=== PATIENT | female | born 1990 | race Caucasian/White ===

== ENCOUNTER 2016-06-17 19:00 | Inpatient (IN) | payer OTHER ==
[2016-06-17] MEDS ORDERED: DEXTROSE 5%-LACTATED RINGERS 1,000 ML IV SCH (19:30)
[2016-06-17] MEDS ORDERED: oxyCODONE HCL 5 MG TABLET PO PRN (20:21)
[2016-06-17] MEDS ORDERED: ACETAMINOPHEN 325 MG TABLET (FP) PO PRN (20:21)
[2016-06-17] MEDS ORDERED: WITCH HAZEL 50% (TUCKS) 40 PAD/JAR PAD TP PRN (20:21)
[2016-06-17] MEDS ORDERED: BENZOCAINE 28 GM HEMORRHOIDAL OINTMENT TP PRN (20:21)
[2016-06-17] MEDS ORDERED: IBUPROFEN 600 MG TABLET (FP) PO PRN (20:21)
[2016-06-17] MEDS ORDERED: BENZOCAINE 20% 57 GM BOTTLE TP PRN (20:21)
[2016-06-17] MEDS ORDERED: METHYLERGONOVINE MALEATE 0.2 MG/1 ML AMP IM PRN (20:21)
[2016-06-17] MEDS ORDERED: BISACODYL 10 MG SUPP.RECT RC PRN (20:21)
--- NOTE | 2016-06-17 20:29 | HP ---
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 Weeks Gestation by Dates: 39.4 ...EDC by Dates: 06/20/16 ...EDC by Sono: 06/24/16 (39 weeks ) Heme/Onc: Yes: Anemia (rx po iron & pnv h/o blood transfusions in 2013 h/o VIT D deff) Infectious Disease: No: HIV, STD's Rheumatology: Yes: Lupus (hy/o pos DANGELO, f/u with Stick Inserter) Endocrine: No: Diabetes Mellitus, Hyperthyroidism, Hypothyroidism - Past Surgical History Past Surgical History: Yes: None Hx Myomectomy: No Hx Transabdominal Cerclage: No - Smoking History Smoking history: Never smoked Have you smoked in the past 12 months: No - Alcohol/Substance Use Hx Alcohol Use: No History of Substance Use: reports: None - Social History History of Recent Travel: No Home Medications - Allergies Allergies/Adverse Reactions: Allergies Allergy/AdvReac Type Severity Reaction Status Date / Time No Known Allergies Allergy Verified 06/17/16 15:01 - Home Medications Home Medications: Ambulatory Orders Pnv95/Ferrous Fumarate/FA [ Vitamin Tablet] 1 each PO DAILY 04/07/16 Ferrous Gluconate [Iron] 1 tab PO DAILY 06/17/16 Family Disease History - Family Disease History Family Disease History: Other: Grandparent (brain tummor and seizures) Physical Exam - Maternity Vital Signs: Selected Entries 06/17/16 19:20 Temperature 98.1 F Pulse Rate 103 H Respiratory 20 Rate Blood Pressure 130/76 Weight 178 lb Constitutional: Yes: Well Nourished, Severe Distress Eyes: Yes: WNL HENT: Yes: WNL Neck: Yes: WNL Cardiovascular: Yes: WNL Lungs: Clear to auscultation Breast(s): Yes: Other (not examined) - Abdominal Exam/OB Fundal Height: 40 Number of Fetuses: Single Presentation: Vertex Regularity: Regular (q2 min) Intensity: Strong Monitor Mode: External Heart Rate (range): 140 Heart Rate Location: Midline Category: I Accelerations: Uniform - Vaginal Exam/OB Vaginal Bleediing: No Speculum Exam: No Dilatation (cm): 10 cm Effacement (%): 100 Amniotic Membrane Status: Ruptured (srom at 19.25 hr) Amniotic Fluid: Yes: Clear Presentation: Vertex/Position (. exam at 19.25 fully dilated at 19.20 hr) Station: +2 - Physical Exam Musculoskeletal: Yes: WNL Extremities: Yes: WNL. No: Calf Tenderness Edema: Yes Edema: LLE: 1+, RLE: 1+ Integumentary: Yes: WNL Deep Tendon Reflex Grade: Normal +2 ...Motor Strength: WNL Psychiatric: Yes: WNL, Alert, Oriented - Labs Lab Results: Laboratory Tests 06/17/16 06/17/16 06/17/16 21:00 21:00 21:00 WBC 14.7 H D Hgb 12.5 Hct 37.9 Plt Count 221 D Neutrophils % 92.6 H Lymphocytes % 3.7 L D INR 0.94 PTT (Actin FS) 26.3 L Sodium 137 Potassium 3.5 Carbon Dioxide 20 L D BUN 7 D Creatinine 0.6 Random Glucose 105 D Blood Type 06/17/16 21:00 WBC Hgb Hct Plt Count Neutrophils % Lymphocytes % INR PTT (Actin FS) Sodium Potassium Carbon Dioxide BUN Creatinine Random Glucose Blood Type A POSITIVE Problem List - Problems (1) 39 weeks gestation of Code(s): Z3A.39 - 39 WEEKS GESTATION OF (2) Labor established Code(s): IPY7675 - Assessment/Plan 25 yrs Gbs neg, admitted in active labor,2nd stage . Pt had at 19.37 hr , babay Girl, apgar9/9, Doreen Placenta delivery at 19.45 hr
[2016-06-17] MEDS ORDERED: D5W-LR W/ 20 UNITS OXYTOCIN 1,000 ML IV SCH (20:30)
[2016-06-17 21:40] VITALS: BMI 27.8
[2016-06-17 22:11] LABS: BASOPHIL 0.2 % (0-2.0); MCH 27.9 pg (25.7-33.7); MEAN CELL VOLUME 84.5 fl (80-96); MEAN PLT VOLUME 8.7 fl (7.5-11.1); NEUTROPHILS 92.6 % (42.8-82.8); PLATELET COUNT 221 K/MM3 (134-434); RDW 14.7 % (11.6-15.6); WHITE BLOOD COUNT 14.7 K/mm3 (4.0-10.0)
[2016-06-17 22:13] LABS: CALCIUM 8.3 mg/dL (8.5-10.1); CREATININE 0.6 mg/dL (0.55-1.02)
[2016-06-17 22:38] LABS: INR 0.94 (0.82-1.09); PROTHROMBIN TIME (PATIENT) 10.3 SEC (9.98-11.88)
[2016-06-17 22:41] LABS: ACTIVATED PTT 26.3 SECONDS (26.9-34.4)
--- NOTE | 2016-06-17 23:14 | PN ---
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
[2016-06-18] MEDS: FERROUS SO4 325 MG TABLET (FP) PO SCH ×2 (08:00→16:43)
--- NOTE | 2016-06-18 08:24 | PN ---
Post Progress Note - Subjective Subjective: doing well and has no complaint Post Day: 1 Type of Delivery: Vital Signs: Vital Signs Temperature 98.1 F 06/18/16 06:00 Pulse Rate 72 06/18/16 06:00 Respiratory Rate 18 06/18/16 06:00 Blood Pressure 113/64 06/18/16 06:00 O2 Sat by Pulse Oximetry (%) Breast Exam: Yes: Soft Uterus: Yes: Fundus Firm Abdomen/GI: Yes: Abdomen soft Lochia: Yes: Rubra Lochia, amount: Small Extremities: Yes: Calves non-tender Perineum: Yes: Intact Activity: Ambulating - Labs Labs: CBC WBC 14.7 K/mm3 (4.0-10.0) H D 06/17/16 21:00 RBC 4.48 M/mm3 (3.60-5.2) 06/17/16 21:00 Hgb 12.5 GM/dL (10.7-15.3) 06/17/16 21:00 Hct 37.9 % (32.4-45.2) 06/17/16 21:00 MCV 84.5 fl (80-96) 06/17/16 21:00 MCHC 33.0 g/dl (32.0-36.0) 06/17/16 21:00 RDW 14.7 % (11.6-15.6) D 06/17/16 21:00 Plt Count 221 K/MM3 (134-434) D 06/17/16 21:00 MPV 8.7 fl (7.5-11.1) D 06/17/16 21:00 Neutrophils % 92.6 % (42.8-82.8) H 06/17/16 21:00 Lymphocytes % 3.7 % (8-40) L D 06/17/16 21:00 Monocytes % 3.5 % (3.8-10.2) L 06/17/16 21:00 Eosinophils % 0.0 % (0-4.5) D 06/17/16 21:00 Basophils % 0.2 % (0-2.0) 06/17/16 21:00 Assessment/Plan as asbove oob reg diet check labs
[2016-06-18 08:45] LABS: BASOPHIL 0.2 % (0-2.0); MCH 27.6 pg (25.7-33.7); MCHC 33.1 g/dl (32.0-36.0); MEAN CELL VOLUME 83.6 fl (80-96); MEAN PLT VOLUME 8.2 fl (7.5-11.1); NEUTROPHILS 85.3 % (42.8-82.8); PLATELET COUNT 185 K/MM3 (134-434); RDW 14.7 % (11.6-15.6); WHITE BLOOD COUNT 13.3 K/mm3 (4.0-10.0)
[2016-06-18] MEDS: PRENATAL VITAMINS W/ FOLIC ACID TABLET (FP) PO SCH (09:38)
[2016-06-18] MEDS ORDERED: PNEUMOC 13-VAL CONJ-DIP CRM/PF 0.5 ML DISP.SYRIN IM ONE (10:00)
[2016-06-18 21:53] VITALS: TEMP 97.7
[2016-06-18] MEDS ORDERED: SENNOSIDES/DOCUSATE COMBO (SENNA PLUS) TABLET (UD) PO PRN (22:00)
--- NOTE | 2016-06-19 07:53 | PN ---
Progress Note (short form) - Note Progress Note: ppd 2 no c/o voids ok CBC, BMP 06/18/16 07:45 06/17/16 21:00 Last Vital Signs Temp Pulse Resp BP Pulse Ox 97.7 F 75 18 107/62 06/18/16 21:53 06/18/16 21:53 06/18/16 21:53 06/18/16 21:53 abdomen soft, uterus firm lochia mild no calf tenderness plan d/c home ,rtc 4 weeks
[2016-06-19] MEDS: FERROUS SO4 325 MG TABLET (FP) PO SCH (08:08)
[2016-06-19] MEDS: PRENATAL VITAMINS W/ FOLIC ACID TABLET (FP) PO SCH (10:14)
[2016-06-19 10:28] VITALS: BP 100/44; PULSE 60
--- NOTE | 2016-06-19 13:31 | DS ---
Physical Exam-VOCATIONAL CASE MANAGER Vital Signs: Vital Signs Temperature 97.7 F 06/19/16 10:23 Pulse Rate 60 06/19/16 10:23 Respiratory Rate 18 06/19/16 10:23 Blood Pressure 100/44 06/19/16 10:23 O2 Sat by Pulse Oximetry (%) Constitutional: Yes: Well Nourished Eyes: Yes: WNL HENT: Yes: WNL Neck: Yes: WNL Cardiovascular: Yes: WNL Respiratory: Yes: WNL Gastrointestinal: Yes: WNL ...Rectal Exam: Yes: WNL ....Post : Yes: Uterus firm, Uterus non-tender, Moderate lochia rubra ( perineum 2nd degree laceration healing) Breast(s): Yes: WNL (BF) Musculoskeletal: Yes: WNL Extremities: Yes: WNL. No: Calf Tenderness Edema: LLE: Trace, RLE: Trace Neurological: Yes: WNL, Unresponsive Psychiatric: Yes: WNL, Alert, Oriented Labs: CBC, BMP 06/18/16 07:45 06/17/16 21:00 Delivery - Delivery Vaginal Delivery: No Problems, Spontaneous Type of Anesthesia: Local Episiotomy/Laceration: 2nd degree (laceration was suture in layers with Chr catgut #2/o under L/a) EBL (cc): 300 Delivery, Single - Stages of Labor Date 1st Stage Initiatied: 06/17/16 Time 1st Stage Initiated: 17:30 Date 2nd Stage Initiated: 06/17/16 Time 2nd Stage Initiated: 19:20 Date of Delivery: 06/17/16 Time of Delivery: 19:37 Time Placenta Delivered: 19:45 Placenta: Yes: Spontaneous, Uterine Exploration - Condition of Infant Rat Trapper/Sanitation Truck Driver Present: No Infant Gender: Female Weight: 7 lb 6 oz Position: Left, OA Total Hours ROM (Hrs/Mins): 20 min - 1 Minute Total Score: 9 5 Minutes Total Score: 9 - [place] Feeding Plan Initial Plan: Elected not to breastfeed exclusively throughout hospitalization Remarks - Remarks Remarks: 25 yrs 39 weeks admitted in active 2nd stage of labor PNC at , [facility] GBS neg Intrapartum course uneventful. pp course uneventful. discharge today. Discharge Summary Reason For Visit: LABOR Current Active Problems 39 weeks gestation of (Acute) Labor established (Acute) Normal spontaneous vaginal delivery (Acute) Condition: Stable - Instructions Diet, Activity, Other Instructions: Post Instructions DIET: Continue good diet high in protein, calcium, and iron rich foods. Drink at least eight (8) glasses of water daily in addition to other fluids. CT Regular diet MEDICATIONS: Continue vitamins and iron as previously directed. Motrin and Tylenol may be taken for minor discomfort. ACTIVITY: Mild to moderate exercise may be started in two (2) weeks. Take frequent rest periods. Resume normal activity after six (6) week check up. WOUND CARE OF OPERATIVE SITE: Continue use of perineal bottle until vaginal discharge stops. Keep area clean. Shower daily. Keep abdominal wound dry. Report any drainage or redness to physician. Tub baths, tampons and douches are not permitted for [address] Breast feeding & or Bottle feeding BREAST CARE: (For those that are not breast feeding): If engorgement occurs: Wear tight fitting bra. Take Tylenol or Motrin for pain. Apply cold packs (ice in bags to each breast ) FAMILY PLANNING: There are many control alternatives to pursue and they should be discussed at your first office visit. You may resume sexual activity after your six (6) week check up. (Remember, breast feeding is not a contraceptive) NEXT PHYSICIAN APPOINTMENT: Be certain to call for a six (6) week appointment, unless otherwise directed. Call Clinic or got to Emergency Dept if you have any of the following: Heavy vaginal bleeding Painful urination Leg pain Unusual odor noted to vaginal bleeding High fever Red streaking noted on breast Referrals: Leti Romero MD [Staff Physician] - Disposition: HOME - Home Medications Comprehensive Discharge Medication List: Ambulatory Orders Pnv95/Ferrous Fumarate/FA [ Vitamin Tablet] 1 each PO DAILY 04/07/16 Ferrous Gluconate [Iron] 1 tab PO DAILY 06/17/16 Acetaminophen [Tylenol .Regular Strength -] 650 mg PO Q3H PRN #0 tablet Benzocaine [Americaine 20% [place] -] 1 spray TP PRN PRN #0 bottle 06/18/16 Ferrous Sulfate [Feosol] 325 mg PO BIDWM 06/18/16 Ibuprofen [Motrin -] 200 mg PO Q4H PRN #0 tablet 06/18/16 Vitamins (Sjr) - 1 tab PO DAILY tablet 06/18/16 Ibuprofen [Motrin -] 600 mg PO QID #28 tablet 06/19/16
== END 2016-06-19 13:40 | disposition home or self-care (01) | DRG 560 ==
LOC: JLDR 19:00 → J3W 22:25
PROVIDERS: ADMIT Obstetrics & Gynecology; ATTEND Obstetrics & Gynecology
PROC: 0KQM0ZZ Repair Perineum Muscle, Open Approach (ICD-10-PCS; principal; 2016-06-17)
PROC: 10E0XZZ Delivery of Products of Conception, External Approach (ICD-10-PCS; 2016-06-17)
DX: O70.1 Second degree perineal laceration during delivery (principal); Z3A.39 39 weeks gestation of pregnancy; Z37.0 Single live birth
CPT/HCPCS: 36415; 59409; 80048; 85025; 85610; 85730; 86593; 86850; 86900; 86901

== ENCOUNTER 2018-08-08 12:23 | Emergency (ER) | payer OTHER ==
[2018-08-08 12:33] VITALS: BP 135/82; PULSE 76; TEMP 98.1; BMI 27.1
--- NOTE | 2018-08-08 13:30 | PDOC ---
History of Present Illness - General Chief Complaint: Chest Pain Stated Complaint: CHEST PAIN Time Seen by Provider: 08/08/18 13:15 - History of Present Illness Initial Comments: 08/08/18 13:25 27-year-old female with past medical history significant for hypothyroidism presents for evaluation of upper back pain 6 days. Past History - Past Medical History Allergies/Adverse Reactions: Allergies Allergy/AdvReac Type Severity Reaction Status Date / Time No Known Allergies Allergy Verified 08/08/18 12:30 Home Medications: Ambulatory Orders Cyclobenzaprine HCl [Flexeril 10 mg] 10 mg PO HS PRN #10 tablet 08/08/18 Ibuprofen [Motrin -] 600 mg PO TID #30 tablet 08/08/18 Levothyroxine [Synthroid -] 100 mcg PO DAILY 08/08/18 Asthma: Yes (no meds) Cancer: No Cardiac Disorders: No COPD: No Diabetes: No HTN: No Seizures: Yes (no meds) Thyroid Disease: No - Immunization History Immunization Up to Date: No - Suicide/Smoking/Psychosocial Hx Smoking History: Never smoked Have you smoked in the past 12 months: No Hx Alcohol Use: No Drug/Substance Use Hx: No Hx Substance Use Treatment: No Review of Systems - Review of Systems Constitutional: No: Fever Cardiac (ROS): Yes: Chest Pain. No: Lightheadedness, Palpitations, Syncope, Chest Tightness Musculoskeletal: Yes: Back Pain *Physical Exam - Vital Signs Last Vital Signs Temp Pulse Resp BP Pulse Ox 98.1 F 76 17 135/82 100 08/08/18 12:30 08/08/18 12:30 08/08/18 12:30 08/08/18 12:30 08/08/18 12:30 - Physical Exam Comments: 08/08/18 13:26 HEAD: NC/AT EYES: Conjuntiva clear Ears: Canals and TM's normal NOSE: No d/c THROAT: Moist mucous membrances, oral pharanx clear, uvula midline NECK: Supple without adenopathy CARDIAC: S1 S2 LUNGS: CTA Full and Equal breath sounds ABDOMEN: Soft NT ND MS: Full ROM in all joints without edema NEUROLOGIC: No gross sensory or motor deficits, NVID SKIN: Normal color and temperature no lesions or rashes Cervical thoracic and lumbar spine skin color and temperature are normal. There is no midline tenderness. Range of motion is full in all areas. There is tenderness about the left para thoracic musculature into the latissimus wrapping around to the front. Mild left-sided costochondral tenderness. No gross sensorimotor deficits in bilateral upper or lower extremities 5 out of 5 strength in both bilateral upper and lower extremities. No gross sensorimotor deficits. Medical Decision Making - Medical Decision Making 08/08/18 13:28 Upper back strain and costochondritis Motrin and Flexeril follow-up with orthospine *DC/Admit/Observation/Transfer Diagnosis at time of Disposition: Costochondral pain, Strain of thoracic spine - Discharge Dispostion Disposition: HOME Condition at time of disposition: Stable Decision to Admit order: No - Prescriptions Prescriptions: Cyclobenzaprine HCl [Flexeril 10 mg] 10 mg PO HS PRN #10 tablet PRN Reason: Muscle Spasms Ibuprofen [Motrin -] 600 mg PO TID #30 tablet - Referrals Referrals: Be Mendieta MD [Staff Physician] - - Patient Instructions Printed Discharge Instructions: Costochondritis, DI for Costochondritis, Muscle Strain Additional Instructions: Please take the Flexeril and Motrin as directed. He may also add Tylenol as directed for additional pain medicine. Continue your regular medication as directed. Follow-up with orthopedic spine surgery in 1-2 days for further evaluation and treatment options and return to the emergency room should symptoms worsen. - Post Discharge Activity
--- NOTE | 2018-08-09 14:59 | EKG ---
Test Reason : Blood Pressure : / mmHG Vent. Rate : 061 BPM Atrial Rate : 061 BPM P-R Int : 162 ms QRS Dur : 096 ms QT Int : 428 ms P-R-T Axes : 030 063 044 degrees QTc Int : 430 ms NORMAL SINUS RHYTHM NORMAL ECG Confirmed by MD NGOZI, ANA ([id number]) on 08/09/2018 2:58:50 PM Referred By: Confirmed By:ANA MELVIN MD
== END 2018-08-08 13:45 | disposition home or self-care (01) ==
LOC: JERFT 12:23
DX: M94.0 Chondrocostal junction syndrome [Tietze] (principal); S29.012A Strain of muscle and tendon of back wall of thorax, initial encounter; X58.XXXA Exposure to other specified factors, initial encounter; Y93.89 Activity, other specified; Y92.89 Other specified places as the place of occurrence of the external cause; Y99.8 Other external cause status
CPT/HCPCS: 93005; 93010; 99281-25

== ENCOUNTER 2018-10-07 11:18 | Emergency (ER) | payer OTHER ==
[2018-10-07 11:33] VITALS: BP 109/59; PULSE 60; TEMP 98.2; BMI 29.2
[2018-10-07] MEDS ORDERED: CYCLOBENZAPRINE HCL 10 MG TABLET (FP) PO ONE (12:01)
[2018-10-07] MEDS ORDERED: LIDOCAINE 5% TOPICAL PATCH TP ONE (12:01)
[2018-10-07] MEDS ORDERED: IBUPROFEN 600 MG TABLET (FP) PO ONE ×2 (12:01→12:04)
[2018-10-07] MEDS ORDERED: CYCLOBENZAPRINE HCL 10 MG TABLET (FP) ONE (12:04)
[2018-10-07] MEDS ORDERED: LIDOCAINE 5% TOPICAL PATCH ONE (12:04)
--- NOTE | 2018-10-07 12:15 | PDOC ---
History of Present Illness - General Chief Complaint: Injury Stated Complaint: FALL/PAIN Time Seen by Provider: 10/07/18 11:39 History Source: Patient Exam Limitations: No Limitations Past History - Past Medical History Allergies/Adverse Reactions: Allergies Allergy/AdvReac Type Severity Reaction Status Date / Time No Known Allergies Allergy Verified 10/07/18 11:23 Home Medications: Ambulatory Orders Ibuprofen [Motrin -] 600 mg PO TID #30 tablet 08/08/18 Levothyroxine [Synthroid -] 100 mcg PO DAILY 08/08/18 Cyclobenzaprine HCl [Flexeril 10 mg] 10 mg PO TID PRN #21 tablet 10/07/18 Lidocaine 5% Patch [Lidoderm -] 1 patch TP DAILY #7 patch 10/07/18 Asthma: Yes (no meds) Cancer: No Cardiac Disorders: No COPD: No Diabetes: No HTN: No Seizures: Yes (no meds) Thyroid Disease: No - Immunization History Immunization Up to Date: No - Suicide/Smoking/Psychosocial Hx Smoking History: Never smoked Have you smoked in the past 12 months: No Information on smoking cessation initiated: No Hx Alcohol Use: No Drug/Substance Use Hx: No Hx Substance Use Treatment: No *Physical Exam - Vital Signs Last Vital Signs Temp Pulse Resp BP Pulse Ox 98.2 F 60 17 109/59 L 100 10/07/18 11:24 10/07/18 11:24 10/07/18 11:24 10/07/18 11:24 10/07/18 11:24 - Physical Exam General Appearance: No: Apparent Distress Respiratory/Chest: positive: Lungs Clear, Normal Breath Sounds. negative: Respiratory Distress Cardiovascular: positive: Regular Rhythm, Regular Rate, S1, S2. negative: Murmur Gastrointestinal/Abdominal: positive: Normal Bowel Sounds, Soft. negative: Tender, Distended, Guarding, Rebound Musculoskeletal: positive: Other (+R lumbosacral paraspinal TTP, no vertebral tenderness, negative SLR B/L). negative: Vertebral Tenderness Neurologic: positive: unit aide II-XII NML intact, Fully Oriented, Alert, Normal Mood/ Affect, Motor Strength 5/5 ED Treatment Course - Medications Given in the ED: ED Medications Discontinued Medications Generic Name Dose Route Start Last Admin Trade Name Freq PRN Reason Stop Dose Admin Cyclobenzaprine HCl 10 mg 10/07/18 12:01 10/07/18 12:06 Flexeril - PO 10/07/18 12:02 10 mg ONCE ONE Administration Ibuprofen 600 mg 10/07/18 12:01 10/07/18 12:06 Motrin - PO 10/07/18 12:02 600 mg ONCE ONE Administration Lidocaine 1 patch 10/07/18 12:01 10/07/18 12:06 Lidoderm Patch - TP 10/07/18 12:02 1 patch ONCE ONE Administration Medical Decision Making - Medical Decision Making 27 y/o F with hx of Nik's presents with lower back pain s/p slip and fall in bathtub 5 weeks ago. States she had put 1 leg out to grab towel and then slipped backward, hitting lower back. States has been taking Motrin, which helps temporarily with pain. States pain radiated down to R knee. Pain is worse with movement of spine. Denies numbness/tingling/weakness of extremities, saddle /groin paresthesia, bowel/bladder incontinence, abd pain, sob, cp, n/v, urinary complaints Not suspicious for spinal fracture/cauda equina/herniated disc based on exam; likely MSK pain Given Motrin, Flexeril, Lidocaine patch 10/07/18 12:10 *DC/Admit/Observation/Transfer Diagnosis at time of Disposition: Lower back pain Qualifiers: Chronicity: acute Back pain laterality: right Sciatica presence: without sciatica Qualified Code(s): M54.5 - Low back pain - Discharge Dispostion Disposition: HOME Condition at time of disposition: Stable Decision to Admit order: No - Prescriptions Prescriptions: Cyclobenzaprine HCl [Flexeril 10 mg] 10 mg PO TID PRN #21 tablet PRN Reason: Muscle Spasms Lidocaine 5% Patch [Lidoderm -] 1 patch TP DAILY #7 patch - Referrals Referrals: Bello Maya MD [Primary Care Provider] - - Patient Instructions Printed Discharge Instructions: DI for Low Back Pain Additional Instructions: Thank you for choosing [facility]. It was a pleasure taking care of you. You may take Motrin 600 mg every 6 hours by mouth as needed for mild to moderate pain. Take Motrin with food. Take Flexeril as needed for muscle spasms. This medication can also make you drowsy so please be cautious with driving or performing heavy physical work. Apply lidocaine patch for 12 hours and then keep off for 12 hours Apply warm compresses Follow-up with your doctor in 2 days Return to the Emergency Department if your symptoms worsen or persist, you have chest pain, severe abdominal pain, vomiting, weakness of extremities, unable to walk, unable to control bowel or bladder movements, numbness around groin or other concerning symptoms. - Post Discharge Activity
== END 2018-10-07 12:20 | disposition home or self-care (01) ==
LOC: JERFT 11:18
DX: M54.5 Low back pain (principal); W18.2XXA Fall in (into) shower or empty bathtub, initial encounter; Y93.E1 Activity, personal bathing and showering; Y92.031 Bathroom in apartment as the place of occurrence of the external cause; Y99.8 Other external cause status
CPT/HCPCS: 99281-25

== ENCOUNTER 2021-01-17 13:15 | Emergency (ER) | payer OTHER ==
[2021-01-17 13:21] VITALS: BP 100/66; PULSE 64; TEMP 98.6; BMI 29.9
[2021-01-17] MEDS ORDERED: KETOROLAC TROMETHAMINE 60 MG/2 ML VIAL IM ONE (13:37)
[2021-01-17] MEDS ORDERED: KETOROLAC TROMETHAMINE 60 MG/2 ML VIAL ONE (13:39)
== END 2021-01-17 15:47 | disposition home or self-care (01) ==
LOC: JER 13:15
PROC: 3E0233Z Introduction of Anti-inflammatory into Muscle, Percutaneous Approach (ICD-10-PCS; principal; 2021-01-17)
DX: S09.90XA Unspecified injury of head, initial encounter (principal); W20.8XXA Other cause of strike by thrown, projected or falling object, initial encounter; Y92.9 Unspecified place or not applicable
CPT/HCPCS: 70450-TC; 99285-25

== ENCOUNTER 2022-12-26 12:28 | Emergency (ER) | payer OTHER ==
[2022-12-26 12:52] VITALS: BP 104/62; PULSE 78; RESP 20; TEMP 98.2; BMI 32.5
[2022-12-26] MEDS ORDERED: SODIUM CHLORIDE 0.9% 500 ML INFUS.BAG IV ONE (13:38)
[2022-12-26 14:19] LABS: BASO % 0.4 % (0-2.0); EOS % 0.7 % (0-4.5); HEMATOCRIT 37.6 % (32.4-45.2); LYMPH % 8.9 % (8-40); MCH 31.8 pg (25.7-33.7); MCHC 34.6 g/dl (32.0-36.0); MEAN CELL VOLUME 91.8 fl (80-96); MEAN PLT VOLUME 7.8 fl (7.5-11.1); MONO % 5.1 % (3.8-10.2); NEUT % 84.9 % (42.8-82.8); PLATELET COUNT 289 10^3/uL (134-434); RDW 14.1 % (11.6-15.6); WHITE BLOOD COUNT 10.4 K/mm3 (4.0-10.0)
[2022-12-26 14:22] LABS: EPI CELLS >36 /uL (0-25.1); HYALINE CASTS 0 /uL (0-3.1); URINE APPEARANCE CLEAR; URINE BACTERIA 646 /uL (0-1359); URINE BILIRUBIN NEGATIVE (NEGATIVE); URINE COLOR YELLOW; URINE GLUCOSE (UA) NEGATIVE (NEGATIVE); URINE KETONE NEGATIVE (NEGATIVE); URINE LEUK ESTERASE 2+ (NEGATIVE); URINE NITRITE NEGATIVE (NEGATIVE); URINE PROTEIN NEGATIVE (NEGATIVE); URINE RBC 24 /uL (0-23.9); URINE UROBILINOGEN 0.2 mg/dL (0.2-1.0); URINE WBC 17 /uL (0-25.8)
[2022-12-26 14:36] LABS: POTASSIUM 4.3 mmol/L (3.5-5.1)
[2022-12-26 14:38] LABS: CALCIUM 8.7 mg/dL (8.5-10.1)
[2022-12-26 14:39] LABS: ALBUMIN 3.1 g/dl (3.4-5.0); BLOOD UREA NITROGEN 7.9 mg/dL (7-18)
[2022-12-26 14:42] LABS: CREATININE 0.6 mg/dL (0.55-1.3)
[2022-12-26 14:43] LABS: BILIRUBIN,TOTAL 0.3 mg/dL (0.2-1); TOT PROT 6.8 g/dl (6.4-8.2)
[2022-12-26] MEDS ORDERED: ACETAMINOPHEN 1000 MG/100 ML BAG IVPB ONE (15:28)
[2022-12-26] MEDS ORDERED: ACETAMINOPHEN INJECTION 100 ML IVPB ONE (15:50)
[2022-12-26] MEDS ORDERED: ACETAMINOPHEN 325 MG TABLET (FP) PO ONE (17:01)
[2022-12-26] MEDS ORDERED: CEPHALEXIN MONOHYDRATE 500 MG CAPSULE (UD) PO ONE (17:02)
[2022-12-26] MEDS ORDERED: CEPHALEXIN MONOHYDRATE 500 MG CAPSULE (UD) ONE (17:09)
[2022-12-26] MEDS ORDERED: ACETAMINOPHEN 325 MG TABLET (FP) ONE (17:09)
== END 2022-12-26 18:30 | disposition home or self-care (01) ==
LOC: JER 12:28
DX: O26.892 Other specified pregnancy related conditions, second trimester (principal); R10.9 Unspecified abdominal pain; O99.891 Other specified diseases and conditions complicating pregnancy; M54.50 Low back pain, unspecified; Z3A.19 19 weeks gestation of pregnancy
CPT/HCPCS: 36415; 76815-TC; 80053; 81003; 84702; 85025; 87086; 99284-25

== ENCOUNTER 2023-05-05 16:59 | Emergency (ER) | payer OTHER ==
[2023-05-05 17:21] VITALS: RESP 18; BMI 34.8
[2023-05-05 22:01] VITALS: BP 110/74; PULSE 107; TEMP 98.1
== END 2023-05-05 21:55 | disposition home or self-care (01) ==
LOC: JER 16:59
PROC: 0H97XZZ Drainage of Abdomen Skin, External Approach (ICD-10-PCS; principal; 2023-05-05)
DX: O99.713 Diseases of the skin and subcutaneous tissue complicating pregnancy, third trimester (principal); L02.214 Cutaneous abscess of groin; Z3A.39 39 weeks gestation of pregnancy
CPT/HCPCS: 87070; 87076; 87205; 99283-25

== ENCOUNTER 2023-05-15 15:30 | Inpatient (IN) | payer OTHER ==
[2023-05-15] MEDS: ELECTROLYTE-148 SOLN 1,000 ML IV SCH (15:50)
[2023-05-15 16:19] VITALS: BMI 34.8
[2023-05-15 16:30] LABS: BASO % 0.6 % (0-2.0); EOS % 0.3 % (0-4.5); LYMPH % 13.2 % (8-40); MCH 31.3 pg (25.7-33.7); MCHC 35.1 g/dl (32.0-36.0); MEAN CELL VOLUME 89.3 fl (80-96); MONO % 5.1 % (3.8-10.2); NEUT % 80.8 % (42.8-82.8); PLATELET COUNT 288 10^3/uL (134-434); RBC 4.15 M/mm3 (3.60-5.2); WHITE BLOOD COUNT 8.3 K/mm3 (4.0-10.0)
[2023-05-15 16:37] LABS: INR 0.95 (0.83-1.09)
[2023-05-15 16:40] LABS: ACTIVATED PTT 25.2 SECONDS (25.2-36.5)
[2023-05-15 16:52] LABS: POTASSIUM 3.9 mmol/L (3.5-5.1)
[2023-05-15 16:53] LABS: BLOOD UREA NITROGEN 10.2 mg/dL (7-18); CALCIUM 9.2 mg/dL (8.5-10.1)
[2023-05-15 16:57] LABS: CREATININE 0.6 mg/dL (0.55-1.3)
[2023-05-15] MEDS ORDERED: OXYTOCIN 20 UNITS in 0.9% NS 20 UNIT/1,000 ML INFUS.BAG IV ONE (20:17)
[2023-05-15] MEDS ORDERED: MISOPROSTOL 200 MCG TABLET ONE (20:31)
[2023-05-15] MEDS: OXYTOCIN 20 UNITS in 0.9% NS 20 UNIT/1,000 ML INFUS.BAG IV SCH (21:05)
[2023-05-15] MEDS ORDERED: BENZOCAINE 28 GM HEMORRHOIDAL OINTMENT TP PRN (21:19)
[2023-05-15] MEDS ORDERED: METHYLERGONOVINE MALEATE 0.2 MG/1 ML AMP IM PRN (21:19)
[2023-05-15] MEDS ORDERED: WITCH HAZEL 50% (TUCKS) 40 PAD/JAR PAD TP PRN (21:19)
[2023-05-15] MEDS ORDERED: BISACODYL 10 MG SUPP.RECT RC PRN (21:19)
[2023-05-15] MEDS ORDERED: BENZOCAINE 20% 57 GM BOTTLE TP PRN (21:19)
[2023-05-15] MEDS ORDERED: IBUPROFEN 600 MG TABLET (FP) PO PRN (21:19)
[2023-05-15] MEDS: MISOPROSTOL 200 MCG TABLET PO ONE (21:20)
[2023-05-15] MEDS: ACETAMINOPHEN 325 MG TABLET (FP) PO PRN (22:50)
[2023-05-15] MEDS ORDERED: ACETAMINOPHEN 325 MG TABLET (FP) ONE (22:54)
[2023-05-16 07:49] LABS: BASO % 0.3 % (0-2.0); EOS % 0.1 % (0-4.5); HEMATOCRIT 34.2 % (32.4-45.2); HEMOGLOBIN 12.3 GM/dL (10.7-15.3); LYMPH % 12.3 % (8-40); MCH 32.1 pg (25.7-33.7); MCHC 35.9 g/dl (32.0-36.0); MEAN CELL VOLUME 89.2 fl (80-96); MONO % 6.8 % (3.8-10.2); NEUT % 80.5 % (42.8-82.8); PLATELET COUNT 241 10^3/uL (134-434); RBC 3.83 M/mm3 (3.60-5.2); RDW 13.9 % (11.6-15.6); WHITE BLOOD COUNT 12.4 K/mm3 (4.0-10.0)
[2023-05-16] MEDS: PRENATAL VITAMINS W/ FOLIC ACID TABLET (FP) PO SCH (09:11)
[2023-05-16] MEDS ORDERED: SENNOSIDES/DOCUSATE COMBO (SENNA PLUS) TABLET (UD) PO PRN (22:00)
[2023-05-17 08:48] VITALS: BP 105/55; PULSE 72; RESP 16; TEMP 97.9
== END 2023-05-17 13:40 | disposition home or self-care (01) | DRG 560 ==
LOC: JLDR 15:30 → J3W 05-16 00:44
PROVIDERS: ADMIT Obstetrics & Gynecology; ATTEND Obstetrics & Gynecology
PROC: 0HQ9XZZ Repair Perineum Skin, External Approach (ICD-10-PCS; principal; 2023-05-15)
PROC: 10E0XZZ Delivery of Products of Conception, External Approach (ICD-10-PCS; 2023-05-15)
PROC: 0W8NXZZ Division of Female Perineum, External Approach (ICD-10-PCS; 2023-05-15)
DX: O42.02 Full-term premature rupture of membranes, onset of labor within 24 hours of rupture (principal); O70.0 First degree perineal laceration during delivery; O69.81X0 Labor and delivery complicated by cord around neck, without compression, not applicable or unspecified; Z3A.39 39 weeks gestation of pregnancy; Z37.0 Single live birth; Z86.69 Personal history of other diseases of the nervous system and sense organs; Z86.59 Personal history of other mental and behavioral disorders
CPT/HCPCS: 36415; 80048; 85025; 85610; 85730; 86850; 86900; 86901